=== PATIENT | male | born 1950 | race Caucasian/White ===

== ENCOUNTER → 2024-04-26 08:10 | Outpatient (REF) | payer MEDICARE, BC, SELFPAY ==
[2024-04-26 09:55] LABS: % Basophils 0.3 % (0-2); % Eosinophils 0.9 % (0-6); % Immature Granulocytes 0.5 % (0-0.5); % Lymphocytes 16.5 % (20.5-51.1); % Monocytes 6.4 % (1.7-9.3); % Neutrophils 75.4 % (42.2-75.2); Absolute Eosinophils 0.1 10^3/uL (0-0.7); Absolute Lymphocytes 1.3 10^3/uL (1.2-3.4); Absolute Monocytes 0.5 10^3/uL (0.1-0.6); Absolute Neutrophils 5.8 10^3/uL (1.4-6.5); Hematocrit 50.8 % (39.0-52.0); Hemoglobin 16.9 g/dL (13.0-18.0); Mean Corp Hgb Conc. 33.3 g/dL (33.0-37.0); Mean Corpuscular Hgb 28.9 pg (27.0-31.0); Mean Corpuscular Volume 86.8 fL (80.0-94.0); Mean Platelet Volume 10.5 fL (7.4-10.4); Nucleated Red Blood Cells % 0 % (-); Platelet Count 249 10^3/uL (130-400); Red Blood Cell Count 5.85 10^6/uL (4.70-6.10); Red Cell Dist. Width 13.3 % (11.5-14.5); White Blood Cell Count 7.7 10^3/uL (4.8-10.8)
[2024-04-26 10:10] LABS: ALT (SGPT) 48 U/L (0-50); AST (SGOT) 30 U/L (17-59); Albumin 4.7 g/dl (3.5-5.0); Alkaline Phosphatase 76 U/L (38-126); Blood Urea Nitrogen 18 mg/dl (9-20); Carbon Dioxide 28 mmol/L (22-30); Chloride 103 mmol/L (98-107); Glucose 104 mg/dl (70-99); HDL Cholesterol 63 mg/dl; LDL Cholesterol, Calculated 123 mg/dl; Potassium 5.1 mmol/L (3.5-5.1); Sodium 139 mmol/L (135-145); Total Bilirubin 1.3 mg/dl (0.2-1.3); Total Cholesterol 201 mg/dl (50-199); Total Protein 7.6 g/dl (6.3-8.2); Triglyceride 77 mg/dl (10-149); Very Low Density Lipoprotein 15 mg/dl (0-30); eGFR > 60.00
[2024-04-26 10:41] LABS: PSA, Total - Screen 1.21 ng/ml (0.0-4.0)
== END ==
LOC: REG 08:10
PROVIDERS: ATTENDING PHYSICIAN Family Medicine
DX: Z00.00 Encounter for general adult medical examination without abnormal findings (principal); N40.0 Benign prostatic hyperplasia without lower urinary tract symptoms; Z90.79 Acquired absence of other genital organ(s); Z12.5 Encounter for screening for malignant neoplasm of prostate; Z13.220 Encounter for screening for lipoid disorders; R73.01 Impaired fasting glucose; R17 Unspecified jaundice; E78.00 Pure hypercholesterolemia, unspecified
CPT/HCPCS: 36415; 80053; 80061; 85025; G0103

== ENCOUNTER 2024-05-19 06:25 | Day surgery (SDC) | payer MEDICARE, SELFPAY | END 2024-05-19 15:35 | disposition home or self-care (01) | LOC: GI 06:25 | PROVIDERS: ATTENDING PHYSICIAN Internal Medicine | DX: Z12.11 Encounter for screening for malignant neoplasm of colon (principal); C18.3 Malignant neoplasm of hepatic flexure; D49.0 Neoplasm of unspecified behavior of digestive system; D12.0 Benign neoplasm of cecum; D12.3 Benign neoplasm of transverse colon; D12.5 Benign neoplasm of sigmoid colon; D12.8 Benign neoplasm of rectum; Z86.0100 Personal history of colon polyps, unspecified | CPT/HCPCS: 45385; 45380; 45381; 88305; 88342 ==

== ENCOUNTER → 2024-05-31 08:12 | Outpatient (REF) | payer MEDICARE, SELFPAY ==
[2024-05-31 09:45] LABS: % Basophils 0.3 % (0-2); % Eosinophils 0.8 % (0-6); % Immature Granulocytes 0.4 % (0-0.5); % Lymphocytes 18.5 % (20.5-51.1); % Monocytes 5.9 % (1.7-9.3); % Neutrophils 74.1 % (42.2-75.2); Absolute Eosinophils 0.1 10^3/uL (0-0.7); Absolute Lymphocytes 1.3 10^3/uL (1.2-3.4); Absolute Monocytes 0.4 10^3/uL (0.1-0.6); Absolute Neutrophils 5.4 10^3/uL (1.4-6.5); Hematocrit 48.8 % (39.0-52.0); Hemoglobin 16.3 g/dL (13.0-18.0); Mean Corp Hgb Conc. 33.4 g/dL (33.0-37.0); Mean Corpuscular Hgb 29.1 pg (27.0-31.0); Mean Platelet Volume 10.4 fL (7.4-10.4); Nucleated Red Blood Cells % 0 % (-); Platelet Count 248 10^3/uL (130-400); Red Blood Cell Count 5.61 10^6/uL (4.70-6.10); Red Cell Dist. Width 12.9 % (11.5-14.5); White Blood Cell Count 7.2 10^3/uL (4.8-10.8)
[2024-05-31 10:12] LABS: ALT (SGPT) 65 U/L (0-50); AST (SGOT) 39 U/L (17-59); Albumin 4.4 g/dl (3.5-5.0); Alkaline Phosphatase 67 U/L (38-126); Blood Urea Nitrogen 16 mg/dl (9-20); Calcium 9.9 mg/dl (8.4-10.2); Carbon Dioxide 26 mmol/L (22-30); Chloride 106 mmol/L (98-107); Glucose 104 mg/dl (70-99); Potassium 4.9 mmol/L (3.5-5.1); Sodium 141 mmol/L (135-145); eGFR > 60.00
[2024-05-31 10:27] LABS: CEA 1.09 ng/ml
== END ==
LOC: REG 08:12
PROVIDERS: ATTENDING PHYSICIAN Surgery; FAMILY PHYSICIAN Family Medicine
DX: C18.9 Malignant neoplasm of colon, unspecified (principal)
CPT/HCPCS: 36415; 80053; 82378; 85025

== ENCOUNTER → 2024-06-08 14:16 | Outpatient (REF) | payer MEDICARE, SELFPAY | LOC: RAD 14:16 | PROVIDERS: ATTENDING PHYSICIAN Surgery; FAMILY PHYSICIAN Family Medicine | DX: C18.9 Malignant neoplasm of colon, unspecified (principal) | CPT/HCPCS: 71260; 74177; Q9967 ==

== ENCOUNTER 2024-06-23 10:49 | Inpatient (IN) | payer MEDICARE, SELFPAY ==
[2024-06-10 11:11] LABS: Hematocrit 46.9 % (39.0-52.0); Mean Corp Hgb Conc. 34.1 g/dL (33.0-37.0); Mean Corpuscular Hgb 29.4 pg (27.0-31.0); Mean Corpuscular Volume 86.1 fL (80.0-94.0); Mean Platelet Volume 10.6 fL (7.4-10.4); Platelet Count 220 10^3/uL (130-400); Red Blood Cell Count 5.45 10^6/uL (4.70-6.10); Red Cell Dist. Width 13.1 % (11.5-14.5); White Blood Cell Count 6.8 10^3/uL (4.8-10.8)
[2024-06-10 11:21] LABS: PT 13.5 Sec (11.4-14.6)
[2024-06-10 11:22] LABS: APTT 30.2 Sec (23.4-35.0)
[2024-06-10 11:35] LABS: ALT (SGPT) 54 U/L (0-50); AST (SGOT) 33 U/L (17-59); Albumin 4.2 g/dl (3.5-5.0); Alkaline Phosphatase 69 U/L (38-126); Blood Urea Nitrogen 15 mg/dl (9-20); Calcium 9.4 mg/dl (8.4-10.2); Carbon Dioxide 28 mmol/L (22-30); Chloride 106 mmol/L (98-107); Glucose 97 mg/dl (70-99); Potassium 4.5 mmol/L (3.5-5.1); Sodium 140 mmol/L (135-145); Total Bilirubin 0.9 mg/dl (0.2-1.3); Total Protein 6.8 g/dl (6.3-8.2); eGFR > 60.00
[2024-06-10 12:04] LABS: CEA 1.13 ng/ml
[2024-06-10 12:23] LABS: Glycohemoglobin (HgbA1c) 5.6 % (4.0-5.6)
[2024-06-10 14:13] VITALS: BMI 26.5
[2024-06-23] VITALS (14 sets, daily range): BP systolic 97–127; BP diastolic 60–85; BMI 26.5
[2024-06-23] MEDS: NORMOSOL-R/PLASMALYTE-A 1000 IV ×2 (12:05→18:26)
[2024-06-23] MEDS: HEPARIN 5000 UNITS SC (12:16)
[2024-06-23] MEDS: ENTEREG 12 MG PO (12:16)
[2024-06-23] MEDS: TYLENOL 1000 MG PO (12:16)
[2024-06-23] MEDS: NEURONTIN 600 MG PO (12:16)
--- NOTE | 2024-06-23 16:41 | W.OR.COLCA ---
Colon Cancer Post Op Note
Immediate Post Op
Primary Surgeon: Vanda Grayson MD
Assisting Surgeon: BARBER Crenshaw
Pre-op Diagnosis: hepatic flexure cancer
Post-op Diagnosis: ascending colon cancer
Procedure Performed: robotic right colectomy
Anesthesia Type: general plus local
Specimen / Cultures: right colon
Estimated Blood Loss: 50 cc
Complications: no immediate
Operative Findings: 1) ascending colon mass with associated tattoo at hepatic flexure 2) no obvious metastatic disease
Hand in bladder
Colon Resection
Colon Resection
Operation performed with curative intent: Yes
Tumor Location: Ascending Colon
Right Hemicolectomy: Ileocolic and Right Colic
[2024-06-23 17:37] LABS: % Basophils 0.2 % (0-2); % Eosinophils 0.1 % (0-6); % Immature Granulocytes 0.5 % (0-0.5); % Lymphocytes 5.3 % (20.5-51.1); % Monocytes 1.2 % (1.7-9.3); % Neutrophils 92.7 % (42.2-75.2); Absolute Immature Granulocytes 0.1 10^3/uL (0-0.05); Absolute Lymphocytes 0.9 10^3/uL (1.2-3.4); Absolute Monocytes 0.2 10^3/uL (0.1-0.6); Absolute Neutrophils 16.3 10^3/uL (1.4-6.5); Hematocrit 44.3 % (39.0-52.0); Hemoglobin 14.5 g/dL (13.0-18.0); Mean Corp Hgb Conc. 32.7 g/dL (33.0-37.0); Mean Corpuscular Hgb 28.9 pg (27.0-31.0); Mean Corpuscular Volume 88.4 fL (80.0-94.0); Mean Platelet Volume 10.9 fL (7.4-10.4); Nucleated Red Blood Cells % 0 % (-); Platelet Count 236 10^3/uL (130-400); Red Blood Cell Count 5.01 10^6/uL (4.70-6.10); Red Cell Dist. Width 13.5 % (11.5-14.5); White Blood Cell Count 17.5 10^3/uL (4.8-10.8)
[2024-06-23] MEDS: TORADOL 10 MG IV ×2 (17:43→23:04)
[2024-06-23 17:50] LABS: Blood Urea Nitrogen 17 mg/dl (9-20); Calcium 8.6 mg/dl (8.4-10.2); Carbon Dioxide 23 mmol/L (22-30); Chloride 104 mmol/L (98-107); Estimated Creatinine Clearance 75 ml/min; Glucose 129 mg/dl (70-99); Magnesium 2.6 mg/dl (1.6-2.3); Potassium 4.6 mmol/L (3.5-5.1); Sodium 137 mmol/L (135-145); eGFR > 60.00
[2024-06-23] MEDS: TYLENOL 650 MG PO ×2 (20:20→23:06)
--- NOTE | 2024-06-23 23:48 | PTCARENOTE ---
Pt arrived 1900 from PACU. Pt AAOX3, but drowsy. VSS. jacobs draining yellow urine. 95% 2L NC. Pt reports no pain. 5 lap sites open to air with glue. head to toe assessment complete. Oriented to room and call mercer. bed locked and in lowest position.
family at bed side.
[2024-06-24 03:21] VITALS: BP 98/60
[2024-06-24] MEDS: TYLENOL 650 MG PO ×5 (05:01→21:29)
[2024-06-24] MEDS: TORADOL 10 MG IV ×3 (05:01→17:41)
[2024-06-24] MEDS: NORMOSOL-R/PLASMALYTE-A 1000 IV (05:18)
[2024-06-24 06:00] VITALS: BMI 26.0
[2024-06-24 06:32] LABS: % Basophils 0.1 % (0-2); % Immature Granulocytes 0.8 % (0-0.5); % Lymphocytes 3.9 % (20.5-51.1); % Monocytes 4.6 % (1.7-9.3); % Neutrophils 90.6 % (42.2-75.2); Absolute Immature Granulocytes 0.1 10^3/uL (0-0.05); Absolute Lymphocytes 0.6 10^3/uL (1.2-3.4); Absolute Monocytes 0.7 10^3/uL (0.1-0.6); Absolute Neutrophils 14.6 10^3/uL (1.4-6.5); Hematocrit 40.7 % (39.0-52.0); Hemoglobin 13.8 g/dL (13.0-18.0); Mean Corp Hgb Conc. 33.9 g/dL (33.0-37.0); Mean Corpuscular Hgb 28.9 pg (27.0-31.0); Mean Corpuscular Volume 85.3 fL (80.0-94.0); Mean Platelet Volume 10.8 fL (7.4-10.4); Nucleated Red Blood Cells % 0 % (-); Platelet Count 214 10^3/uL (130-400); Red Blood Cell Count 4.77 10^6/uL (4.70-6.10); Red Cell Dist. Width 13.3 % (11.5-14.5); White Blood Cell Count 16.1 10^3/uL (4.8-10.8)
[2024-06-24 07:01] LABS: Blood Urea Nitrogen 19 mg/dl (9-20); Calcium 8.4 mg/dl (8.4-10.2); Carbon Dioxide 22 mmol/L (22-30); Chloride 106 mmol/L (98-107); Estimated Creatinine Clearance 75 ml/min; Glucose 124 mg/dl (70-99); Magnesium 2.4 mg/dl (1.6-2.3); Potassium 4.4 mmol/L (3.5-5.1); Sodium 134 mmol/L (135-145); eGFR > 60.00
[2024-06-24 07:10] VITALS: BP 118/66
[2024-06-24] MEDS: PROTONIX 40 MG PO (08:20)
[2024-06-24] MEDS: PROSCAR 5 MG PO (08:20)
[2024-06-24] MEDS: ENTEREG 12 MG PO ×2 (08:20→21:29)
--- NOTE | 2024-06-24 08:45 | W.PN.CRS1 ---
Today's Communication / Plan
-
fulls
lovenox
d/c jacobs
Assessment/Plan
-
POD#1 robotic right colectomy
WBC 16.1, Hgb 13.6.
Vitals normal.
-Advance diet to fulls
-Discontinue jacobs
-D/C IVFs when tolerating po
-Pain control: Toradol/Tylenol standing, Dilaudid PRN
-OR pathology pending
-OOB as tolerated
-Start Lovenox for DVT prophylaxis. TEDS/SCDS in place.
Subjective Data
Procedure
POD#1 robotic right colectomy
Subjective Data
Date of Service: June 24, 2024
Patient states he has no nausea or vomiting. He denies flatus. He is a little sore.
Objective Data
-
Vital Signs
Temp Pulse Resp BP Pulse Ox
98.3 F 67 18 118/66 95
06/24/24 07:10 06/24/24 07:10 06/24/24 07:10 06/24/24 07:10 06/24/24 07:10
Intake & Output
06/23/24 06/24/24 06/25/24
06:59 06:59 06:59
Intake Total 680 / 680
Output Total 825 / 825
Balance -145 / -145
Intake:
Oral fluids 480 / 480
IV fluids (Total) 200 / 200
Normosal 200 / 200
Output:
Urine, Jacobs 825 / 825
Lab Results
06/24/24 05:12
06/24/24 05:12
Physical Exam
-
General: No Acute Distress and AOx3
Abdomen: Soft, Non Distended and Tender (mild around incision)
Skin: Warm and Dry
Incision: Clear, Dry, Intact
[2024-06-24 11:05] VITALS: BP 107/59
--- NOTE | 2024-06-24 13:11 | CM ---
Met with pt and his daughter at bedside
Pt lives alone in a 3 story home; 4 steps to enter, 1 step down to bathroom
Independent, active, drives
DME - rolling walker, shower chair, commode
SNF/HH - no past hx
Has ride at d/c
PCP - [facility] Tavarez [facility]
Pharm - [facility]
Plan - anticipate home no needs
[2024-06-24 15:50] VITALS: BP 132/70
[2024-06-24] MEDS: LOVENOX 40 MG SC (17:41)
[2024-06-24 23:00] VITALS: BP 137/71
[2024-06-24 23:31] LABS: Hemoglobin 13.6 g/dL (13.0-18.0); Mean Corp Hgb Conc. 34.9 g/dL (33.0-37.0); Mean Corpuscular Hgb 29.4 pg (27.0-31.0); Mean Corpuscular Volume 84.2 fL (80.0-94.0); Mean Platelet Volume 10.1 fL (7.4-10.4); Platelet Count 225 10^3/uL (130-400); Red Blood Cell Count 4.63 10^6/uL (4.70-6.10); Red Cell Dist. Width 13.3 % (11.5-14.5); White Blood Cell Count 15.9 10^3/uL (4.8-10.8)
[2024-06-24 23:38] LABS: Blood Urea Nitrogen 17 mg/dl (9-20); Calcium 8.9 mg/dl (8.4-10.2); Carbon Dioxide 23 mmol/L (22-30); Chloride 106 mmol/L (98-107); Estimated Creatinine Clearance 75 ml/min; Glucose 108 mg/dl (70-99); Potassium 4.2 mmol/L (3.5-5.1); Sodium 135 mmol/L (135-145); eGFR > 60.00
[2024-06-24] MEDS: TORADOL IV (23:41)
--- NOTE | 2024-06-24 23:42 | PTCARENOTE ---
Pt reported having 'dark stools' today. Advised pt to ring and let me see his next stool. It was burgundy, heme (+). Contacted overnight House Provider, Irma Davila, who then ordered a CBC and BMP. Vitals stable, pt denies
dizziness/lightheadedness. When asked if we should hold his scheduled IV toradol, I was advised to hold it.
[2024-06-25] MEDS: TYLENOL PO ×2 (01:02→05:09)
[2024-06-25] MEDS: TORADOL IV (05:12)
[2024-06-25 06:00] VITALS: BMI 26.0
[2024-06-25 06:32] LABS: % Basophils 0.2 % (0-2); % Eosinophils 0.3 % (0-6); % Immature Granulocytes 0.4 % (0-0.5); % Lymphocytes 15.8 % (20.5-51.1); % Monocytes 6.5 % (1.7-9.3); % Neutrophils 76.8 % (42.2-75.2); Absolute Lymphocytes 1.7 10^3/uL (1.2-3.4); Absolute Monocytes 0.7 10^3/uL (0.1-0.6); Absolute Neutrophils 8.3 10^3/uL (1.4-6.5); Hematocrit 34.3 % (39.0-52.0); Hemoglobin 11.6 g/dL (13.0-18.0); Mean Corp Hgb Conc. 33.8 g/dL (33.0-37.0); Mean Corpuscular Hgb 28.9 pg (27.0-31.0); Mean Corpuscular Volume 85.5 fL (80.0-94.0); Nucleated Red Blood Cells % 0 % (-); Platelet Count 196 10^3/uL (130-400); Red Blood Cell Count 4.01 10^6/uL (4.70-6.10); Red Cell Dist. Width 13.4 % (11.5-14.5); White Blood Cell Count 10.7 10^3/uL (4.8-10.8)
[2024-06-25 06:57] LABS: Blood Urea Nitrogen 17 mg/dl (9-20); Calcium 8.6 mg/dl (8.4-10.2); Carbon Dioxide 25 mmol/L (22-30); Chloride 109 mmol/L (98-107); Estimated Creatinine Clearance 68 ml/min; Glucose 92 mg/dl (70-99); Potassium 4.4 mmol/L (3.5-5.1); Sodium 137 mmol/L (135-145); eGFR > 60.00
[2024-06-25 07:02] VITALS: BP 117/71
[2024-06-25] MEDS: ENTEREG PO ×2 (07:48→08:47)
[2024-06-25] MEDS: TYLENOL 650 MG PO ×4 (07:48→20:28)
[2024-06-25] MEDS: PROSCAR 5 MG PO (07:48)
[2024-06-25] MEDS: PROTONIX 40 MG PO (07:48)
--- NOTE | 2024-06-25 11:10 | W.PN.GS2 ---
Today's Communication / Plan
-
`
Assessment / Plan
-
Assessment: 73-year-old male postop day #2 status post RAL right colectomy
AFVSS
Maroon stools more likely reflective of old blood at anastomosis then ongoing bleeding -normotensive, no tachycardia
Will repeat H&H in the afternoon
Plan: Multimodal pain control options
Stop Entereg given return of GI function
Repeat H&H in the afternoon -okay to continue with Toradol but will change to as needed, and Lovenox as long as H&H stable
Hold on full liquid diet for now probable dietary advancement in the evening or tomorrow a.m.
Subjective Data
-
Date of Service: June 25, 2024
Patient seen and examined.
Sitting in hospital chair at bedside.
Multiple bowel movements starting early in the a.m. Initially maroon and bloody. Most recent bowel movement with more stool consistency and less blood.
No abdominal pain other than at incision sites along left abdomen and suprapubic area
No nausea, no vomiting
Objective Data
-
Intake and Output
06/24/24 06/25/24 06/26/24
06:59 06:59 07:59
Intake Total 680 / 680 1640 / 1640
Output Total 825 / 825 425 / 425
Balance -145 / -145 1215 / 1215
Intake:
Oral fluids 480 / 480 840 / 840
IV fluids (Total) 200 / 200 800 / 800
Normosal 200 / 200
Output:
Urine, Hand 825 / 825
Urine, Voided 425 / 425
Other:
Number of approximated MODERATE 3
amounts of urine
Number of approximated LARGE 1
amounts of urine
Number of unmeasured liquid
stools
Rectum 5
Vital Signs
Temp Pulse Resp BP Pulse Ox
97.7 F 75 16 117/71 97
06/25/24 07:02 06/25/24 07:02 06/25/24 07:02 06/25/24 07:02 06/24/24 23:00
Lab Results
06/25/24 05:13
Calcium 8.6 mg/dl (8.4-10.2) 06/25/24 05:13
Magnesium 2.4 mg/dl (1.6-2.3) H 06/24/24 05:12
Total Bilirubin 0.9 mg/dl (0.2-1.3) 06/10/24 09:46
AST 33 U/L (17-59) 06/10/24 09:46
ALT 54 U/L (0-50) H 06/10/24 09:46
Alkaline Phosphatase 69 U/L (38-126) 06/10/24 09:46
Total Protein 6.8 g/dl (6.3-8.2) 06/10/24 09:46
Albumin 4.2 g/dl (3.5-5.0) 06/10/24 09:46
Physical Exam
-
NAD AAOx3
ABD: Soft, slightly protuberant but not distended. Mild incisional tenderness but no generalized abdominal tenderness.
Incisions with surgical glue dressings.
[2024-06-25 14:23] LABS: Hematocrit 34.4 % (39.0-52.0); Hemoglobin 11.6 g/dL (13.0-18.0)
[2024-06-25 14:54] VITALS: BP 109/65
[2024-06-25] MEDS: LOVENOX 40 MG SC (17:07)
[2024-06-25 22:49] VITALS: BP 117/68
[2024-06-26] MEDS: TYLENOL PO ×2 (00:29→04:57)
[2024-06-26 06:00] VITALS: BMI 25.4
[2024-06-26 06:48] LABS: Hematocrit 31.7 % (39.0-52.0); Hemoglobin 10.7 g/dL (13.0-18.0); Mean Corp Hgb Conc. 33.8 g/dL (33.0-37.0); Mean Corpuscular Hgb 29.2 pg (27.0-31.0); Mean Corpuscular Volume 86.4 fL (80.0-94.0); Platelet Count 183 10^3/uL (130-400); Red Blood Cell Count 3.67 10^6/uL (4.70-6.10); Red Cell Dist. Width 13.5 % (11.5-14.5); White Blood Cell Count 8.4 10^3/uL (4.8-10.8)
[2024-06-26 07:16] VITALS: BP 118/73
[2024-06-26] MEDS: PROSCAR 5 MG PO (07:25)
[2024-06-26] MEDS: PROTONIX 40 MG PO (07:25)
[2024-06-26] MEDS: TYLENOL 650 MG PO ×4 (07:25→19:40)
--- NOTE | 2024-06-26 11:39 | W.PN.GS2 ---
Addendum entered and electronically signed by Tahir Joseph MD 06/26/24 11:49:
Patient seen and examined.
Complains of heartburn and epigastric discomfort after breakfast.
Appears to be walking the halls comfortably
States there is still blood with his bowel movements
AFVSS
NAD AAOx3
ABD: Very soft, not distended, some tenderness on palpation around incision region and epigastrium. No rebound rigidity or guarding. Surgical sites with glue dressings.
A/P: POD #3 status post RAL right colectomy
In light of continued blood-tinged stools will stop Toradol (has not received any in 24 hours) and hold tonight's Lovenox
Repeat CBC tomorrow a.m.
Okay for low residue diet otherwise
Original Note:
Today's Communication / Plan
-
pain management
Assessment / Plan
-
Assessment: 73-year-old male with hepatic flexure ca postop day #3 status post RAL right colectomy
AFVSS
Blood tinged stools more likely reflective of old blood at anastomosis then ongoing bleeding -normotensive, no tachycardia.
H/H stable but with drift down today. Mild acute anemia secondary to expected blood losses and hemodilution
Sensation of fullness and increase discomfort with breakfast, 'heartburn'
Plan:
Multimodal pain control options
LRD
OOB/Ambulate
CBC in am
c/w PPI
C/w lovenox for VTE ppx
Anticipate d/c tomorrow if tolerating diet/pain well controlled
Subjective Data
-
Date of Service: June 26, 2024
Patient seen and examined at bedside with Dr. Joseph. C/O indigestion and upper abdominal fullness/pain after eating breakfast. Some blood in BM early this morning but no BM's since. Passing flatus. Moaning in discomfort but ambulating in halls
without difficulty.
Objective Data
-
Intake and Output
06/25/24 06/26/24 06/27/24
05:59 06:59 06:59
Intake Total
Output Total
Balance
Intake:
Oral fluids
IV fluids (Total)
Output:
Urine, Hand
Urine, Voided
Other:
Number of approximated MODERATE
amounts of urine
Number of approximated LARGE
amounts of urine
Number of unmeasured liquid
stools
Rectum
Vital Signs
Temp Pulse Resp BP Pulse Ox
97.7 F 74 16 118/73 93
06/26/24 07:16 06/26/24 07:16 06/26/24 07:16 06/26/24 07:16 06/26/24 07:16
Lab Results
06/26/24 05:22
06/25/24 05:13
Calcium 8.6 mg/dl (8.4-10.2) 06/25/24 05:13
Magnesium 2.4 mg/dl (1.6-2.3) H 06/24/24 05:12
Total Bilirubin 0.9 mg/dl (0.2-1.3) 06/10/24 09:46
AST 33 U/L (17-59) 06/10/24 09:46
ALT 54 U/L (0-50) H 06/10/24 09:46
Alkaline Phosphatase 69 U/L (38-126) 06/10/24 09:46
Total Protein 6.8 g/dl (6.3-8.2) 06/10/24 09:46
Albumin 4.2 g/dl (3.5-5.0) 06/10/24 09:46
Physical Exam
-
NAD AAOx3
ABD: Soft, slightly protuberant but not distended. Mild incisional tenderness but no generalized abdominal tenderness.
Incisions with surgical glue dressings.
[2024-06-26 15:02] VITALS: BP 109/64
[2024-06-26 23:00] VITALS: BP 117/71
[2024-06-27] MEDS: TYLENOL PO ×4 (00:08→07:14)
[2024-06-27] MEDS: TYLENOL 650 MG PO (05:35)
[2024-06-27 06:00] VITALS: BMI 25.2
[2024-06-27 07:00] VITALS: BP 120/73
[2024-06-27] MEDS: PROSCAR 5 MG PO (07:12)
[2024-06-27] MEDS: PROTONIX 40 MG PO (07:12)
[2024-06-27 08:33] LABS: Hematocrit 30.6 % (39.0-52.0); Hemoglobin 10.6 g/dL (13.0-18.0); Mean Corp Hgb Conc. 34.6 g/dL (33.0-37.0); Mean Corpuscular Hgb 29.6 pg (27.0-31.0); Mean Corpuscular Volume 85.5 fL (80.0-94.0); Mean Platelet Volume 10.8 fL (7.4-10.4); Platelet Count 179 10^3/uL (130-400); Red Blood Cell Count 3.58 10^6/uL (4.70-6.10); Red Cell Dist. Width 13.4 % (11.5-14.5); White Blood Cell Count 8.1 10^3/uL (4.8-10.8)
--- NOTE | 2024-06-27 11:12 | W.PN.CRS1 ---
Addendum entered and electronically signed by Raphael Grayson MD 06/27/24 18:27:
Of note, the blood that the patient previously had in his stool may have been exacerbated by Lovenox.
Original Note:
Today's Communication / Plan
-
discharge
Assessment/Plan
-
POD#4 robotic right colectomy
WBC 8.1, Hb 10.6
Vitals normal.
-Continue low residue diet
-Voiding post jacobs removal
-Pain control: Toradol/Tylenol standing, Dilaudid PRN
-OR pathology pending
-OOB as tolerated
-Lovenox/Toradol held yesterday due to anemia. TEDS/SCDS in place.
-Okay for discharge today. All discharge instructions discussed with the patient including medications, activity levels, and follow up. All questions answered.
Subjective Data
Procedure
POD#1 robotic right colectomy
Subjective Data
Date of Service: June 27, 2024
Patient states he is feeling well. He had a bowel movement this morning that was non-bloody. He denies nausea or vomiting. He is tolerating a diet.
Objective Data
-
Vital Signs
Temp Pulse Resp BP Pulse Ox
98.5 F 75 18 120/73 94
06/27/24 07:00 06/27/24 07:00 06/27/24 07:00 06/27/24 07:00 06/27/24 07:00
Intake & Output
06/26/24 06/27/24 06/28/24
06:59 06:59 06:59
Intake Total 1080 / 1080
Balance 1080 / 1080
Intake:
Oral fluids 1080 / 1080
Other:
Number of approximated MODERATE 2
amounts of urine
Lab Results
06/27/24 08:04
06/25/24 05:13
Physical Exam
-
General: No Acute Distress and AOx3
Abdomen: Soft, Non Distended and Non Tender
Skin: Warm and Dry
Incision: Clear, Dry, Intact
[2024-06-27 11:48] VITALS: BP 138/81
--- NOTE | 2024-06-27 11:53 | CM ---
Pt for d/c today
Reports has ride home with daughter
Given IMM
Plan - home no needs
--- NOTE | 2024-06-27 11:58 | PTCARENOTE ---
Patient adequate for discharge. IV removed. Discharge paperwork went over with patient and patients daughter, all questions answered at this time. Discharge paper signed and placed in patients chart. Vital signs taken. Patient refusing wheelchair,
wants to walk down to car. Patient aware to seed cone picker medication from [facility] per discharge instructions.
--- NOTE | 2024-06-27 13:39 | PN.CDI ---
CDI
- -
CDI:
Physician Documentation Request
Admit Date: 06/23/24 10:49
Dear Doctor Allison Recinos,
06/23 patient underwent Robotic right colectomy.
06/26 patient noted to have blood tinged stools. Lovenox held.
Please clarify if a relationship exist between these conditions:
Yes,blood in stool is related to/associated with/due to/exacerbated by Lovenox.
No, blood in stool is not related to/associated with/due to/exacerbated by Lovenox
Unable to determine
Use of terms such as suspected, likely, concern for, or probable (associated with a specific diagnosis that is being evaluated, monitored, or treated as if it exists) are acceptable and can be coded in the inpatient setting, when documented at the
time of discharge.
Thank you,
Shanon Hernandez RN, BSN
CDI Specialist
tiger text
Please use your independent medical judgment in providing your response.
== END 2024-06-27 12:32 | disposition home or self-care (01) | DRG 330 ==
LOC: 2 SOUTH 10:49
PROVIDERS: Nurse Practitioner Gerontology; Physician Assistant; Registered Nurse; ADMITTING PHYSICIAN Surgery; FAMILY PHYSICIAN Family Medicine
PROC: 8E0W4CZ Robotic Assisted Procedure of Trunk Region, Percutaneous Endoscopic Approach (ICD-10-PCS; 2024-06-24)
PROC: 0DTF4ZZ Resection of Right Large Intestine, Percutaneous Endoscopic Approach (ICD-10-PCS; 2024-06-24)
DX: C18.2 Malignant neoplasm of ascending colon (principal); D62 Acute posthemorrhagic anemia; D68.32 Hemorrhagic disorder due to extrinsic circulating anticoagulants; K92.1 Melena; N40.0 Benign prostatic hyperplasia without lower urinary tract symptoms; K21.9 Gastro-esophageal reflux disease without esophagitis; T45.515A Adverse effect of anticoagulants, initial encounter; K66.0 Peritoneal adhesions (postprocedural) (postinfection); Z79.899 Other long term (current) drug therapy
CPT/HCPCS: 88309; 36415; 80048; 80053; 82378; 83036; 83735; 85014; 85018; 85025; 85027; 85610; 85730; 86850; 86900; 86901; 88341; 88342; 93005; J1335

== ENCOUNTER 2024-07-28 06:20 | Day surgery (SDC) | payer MEDICARE, SELFPAY ==
[2024-07-28 11:10] VITALS: BMI 26.0
[2024-07-28 11:15] VITALS: BP 127/75
[2024-07-28 11:28] VITALS: BMI 26.0
[2024-07-28] MEDS: NORMOSOL-R/PLASMALYTE-A 1000 IV (11:31)
[2024-07-28 13:05] VITALS: BP 127/75; BP 95/48
[2024-07-28 13:15] VITALS: BP 102/55
[2024-07-28 13:30] VITALS: BP 109/59
[2024-07-28 13:40] VITALS: BP 128/70
[2024-07-28 14:10] VITALS: BP 121/89
== END 2024-07-28 14:10 | disposition home or self-care (01) ==
LOC: SDS 06:20
PROVIDERS: ATTENDING PHYSICIAN Surgery
DX: C18.9 Malignant neoplasm of colon, unspecified (principal); Z45.2 Encounter for adjustment and management of vascular access device
CPT/HCPCS: 36561; 71045; 76000; C1788

== ENCOUNTER → 2025-03-08 08:00 | Outpatient (REF) | payer MEDICARE, SELFPAY ==
[2025-03-08 09:26] LABS: Hematocrit 46.5 % (39.0-52.0); Hemoglobin 15.4 g/dL (13.0-18.0); Mean Corp Hgb Conc. 33.1 g/dL (33.0-37.0); Mean Corpuscular Volume 91.9 fL (80.0-94.0); Nucleated Red Blood Cells % 0 % (-); Platelet Count 174 10^3/uL (130-400); Red Cell Dist. Width 12.7 % (11.5-14.5)
[2025-03-08 09:58] LABS: ALT (SGPT) 34 U/L (0-50); AST (SGOT) 33 U/L (17-59); Albumin 4.8 g/dl (3.5-5.0); Alkaline Phosphatase 69 U/L (38-126); Blood Urea Nitrogen 15 mg/dl (9-20); Calcium 9.8 mg/dl (8.4-10.2); Carbon Dioxide 27 mmol/L (22-30); Chloride 107 mmol/L (98-107); Glucose 99 mg/dl (70-99); Potassium 5.4 mmol/L (3.5-5.1); Sodium 137 mmol/L (135-145); Total Protein 7.9 g/dl (6.3-8.2); eGFR > 60.00
[2025-03-08 10:53] LABS: CEA 1.77 ng/ml
== END ==
LOC: REG 08:00
PROVIDERS: ATTENDING PHYSICIAN Internal Medicine Hematology & Oncology; FAMILY PHYSICIAN Family Medicine
DX: C18.9 Malignant neoplasm of colon, unspecified (principal); C49.A4 Gastrointestinal stromal tumor of large intestine
CPT/HCPCS: 36415; 80053; 82378; 85025

== ENCOUNTER → 2025-03-22 08:27 | Outpatient (REF) | payer MEDICARE, SELFPAY | LOC: RAD 08:27 | PROVIDERS: ATTENDING PHYSICIAN Internal Medicine Hematology & Oncology; FAMILY PHYSICIAN Family Medicine | DX: C18.9 Malignant neoplasm of colon, unspecified (principal); C49.8 Malignant neoplasm of overlapping sites of connective and soft tissue; C49.A4 Gastrointestinal stromal tumor of large intestine | CPT/HCPCS: 71260; 74177; Q9967 ==